=== PATIENT | male | born 1985 | race African-American/Black ===

== ENCOUNTER 2018-06-19 20:00 | Emergency (ER) | payer BC ==
[2018-06-19 20:08] VITALS: BP 162/76; PULSE 88; TEMP 98.5; BMI 25.1
[2018-06-19] MEDS ORDERED: DEXTROSE 50%-WATER 25 GM/50 ML DISP.SYRIN ONE (20:28)
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
--- NOTE | 2018-06-20 11:23 | EKG ---
Test Reason : Blood Pressure : / mmHG Vent. Rate : 076 BPM Atrial Rate : 076 BPM P-R Int : 166 ms QRS Dur : 100 ms QT Int : 388 ms P-R-T Axes : 070 035 023 degrees QTc Int : 436 ms NORMAL SINUS RHYTHM NORMAL ECG NO PREVIOUS ECGS AVAILABLE Confirmed by FIDEL WHITEHEAD MD ([id number]) on 06/20/2018 11:23:18 AM Referred By: Confirmed By:FIDEL WHITEHEAD MD
== END 2018-06-19 23:35 | disposition home or self-care (01) ==
LOC: JER 20:00
DX: E10.649 Type 1 diabetes mellitus with hypoglycemia without coma (principal); Z79.4 Long term (current) use of insulin
CPT/HCPCS: 82962; 93005; 93010; 99282-25